=== PATIENT | male | born 1960 | race Caucasian/White ===

== ENCOUNTER 2017-08-24 02:00 | Inpatient (IN) | payer MEDICARE, MEDICAID ==
[~2017-08-24] VITALS: Ht 185.4 cm; Wt 108.9 kg
[2017-08-24 02:14] VITALS: Ht 185.4 cm; Wt 108.9 kg
[2017-08-24 02:43] LABS: BASOPHIL % 0.7 % (0-2); PLATELET COUNT 241 x10^3mcL (130-400); RED CELL DISTRIBUTION WIDTH 13.6 % (11.5-14.5)
[2017-08-24 03:07] LABS: CALCIUM 8.6 mg/dL (8.5-10.1); CARBON DIOXIDE 29.5 mmol/L (21-32); CHLORIDE SERUM 105 mmol/L (98-107); GFR1 > 60 mL/min; GLUCOSE SERUM 105 mg/dL (74-106); POTASSIUM SERUM 3.8 mmol/L (3.5-5.1); SODIUM SERUM 140 mmol/L (136-145)
[2017-08-24 03:12] LABS: ALBUMIN 3.6 g/dL (3.4-5.0); ALKALINE PHOSPHATASE 93 U/L (46-116); ALT/SGPT 13 U/L (16-63); AST/SGOT 17 U/L (15-37); BILIRUBIN TOTAL 0.33 mg/dL (0.20-1.00); TOTAL PROTEIN, SERUM 7.3 g/dL (6.4-8.2)
[2017-08-24 04:37] LABS: AMPHETAMINE QUAL UR NONE DETECTED (NEG <=1000)
[2017-08-24 05:24] LABS: microscopic required? NO
[2017-08-24 05:28] LABS: urine erythrocyte NEGATIVE (NEGATIVE)
[2017-08-24 05:51] LABS: FREE T4 0.86 ng/dL (0.76-1.46); FREE THYROXINE INDEX 2.4 ug/dL (1.4-4.5); T4(THYROXINE) 7.3 ug/dL (4.7-13.3)
[2017-08-24 06:08] LABS: CHOLESTEROL/HDL RATIO 3.4; MAGNESIUM 1.9 mg/dL (1.8-2.4); PHOSPHOROUS 4.3 mg/dL (2.5-4.9)
[2017-08-24 07:06] VITALS: BP 129/66
[2017-08-24 07:29] LABS: T3 TOTAL 1.1 ng/mL
[2017-08-24 08:20] VITALS: BP 116/72
[2017-08-24] MEDS ORDERED: NEURONTIN800 MG PO (09:20)
[2017-08-24] MEDS ORDERED: VIS50 PO (09:22)
[2017-08-24] MEDS ORDERED: TRAZODONE50 M1 (09:22)
[2017-08-24] MEDS ORDERED: COUMADIN3 MG PO (09:23)
[2017-08-24] MEDS ORDERED: TRAZODONE50 M1 PO (09:23)
[2017-08-24] MEDS ORDERED: LOSARTAN POTAS100 M1 PO (09:29)
[2017-08-24] MEDS ORDERED: LOP100 PO (09:29)
[2017-08-24] MEDS ORDERED: HYDROCHLOROTH12.5 M2 PO (09:31)
[2017-08-24] MEDS ORDERED: NOR10 PO (09:32)
[2017-08-24] MEDS ORDERED: LIPITOR40 MG PO (09:32)
[2017-08-24] MEDS ORDERED: PEPCID40 MG PO (09:35)
[2017-08-24 13:30] VITALS: BP 118/70
[2017-08-24 14:25] VITALS: BP 129/66
[2017-08-24 16:50] VITALS: BP 124/85
[2017-08-24 21:02] VITALS: BP 114/71
[2017-08-25 04:57] VITALS: BP 125/79
[2017-08-25 06:11] LABS: PLATELET COUNT 223 x10^3mcL (130-400); RED CELL DISTRIBUTION WIDTH 13.7 % (11.5-14.5)
[2017-08-25 06:14] LABS: CALCIUM 8.3 mg/dL (8.5-10.1); CARBON DIOXIDE 32.8 mmol/L (21-32); CHLORIDE SERUM 106 mmol/L (98-107); CREATININE SERUM 1.1 mg/dL (0.7-1.3); GFR1 > 60 mL/min; GLUCOSE SERUM 89 mg/dL (74-106); PHOSPHOROUS 4.1 mg/dL (2.5-4.9); POTASSIUM SERUM 4.8 mmol/L (3.5-5.1); SODIUM SERUM 144 mmol/L (136-145)
[2017-08-25 08:00] VITALS: BP 109/68
[2017-08-25 14:09] VITALS: BP 120/78
[2017-08-25 17:33] VITALS: BP 141/81
[2017-08-25 21:16] VITALS: BP 122/72
[2017-08-26 05:28] VITALS: BP 103/76
[2017-08-26 06:05] LABS: BASOPHIL % 0.7 % (0-2); PLATELET COUNT 237 x10^3mcL (130-400); RED CELL DISTRIBUTION WIDTH 13.7 % (11.5-14.5)
[2017-08-26 06:24] LABS: CALCIUM 8.7 mg/dL (8.5-10.1); CHLORIDE SERUM 103 mmol/L (98-107); CREATININE SERUM 1.1 mg/dL (0.7-1.3); GFR1 > 60 mL/min; GLUCOSE SERUM 95 mg/dL (74-106); PHOSPHOROUS 3.6 mg/dL (2.5-4.9); POTASSIUM SERUM 4.8 mmol/L (3.5-5.1); SODIUM SERUM 142 mmol/L (136-145)
[2017-08-26 08:53] VITALS: BP 133/66
[2017-08-26 09:50] VITALS: BP 127/87
[2017-08-26 13:05] VITALS: BP 127/77
[2017-08-26] MEDS ORDERED: LAM100 PO (13:49)
[2017-08-26] MEDS ORDERED: KEP500 PO (13:49)
[2017-08-26 20:22] VITALS: BP 124/79
[2017-08-27 06:00] LABS: BASOPHIL % 0.7 % (0-2); PLATELET COUNT 234 x10^3mcL (130-400); RED CELL DISTRIBUTION WIDTH 13.4 % (11.5-14.5)
[2017-08-27 06:22] LABS: CALCIUM 8.7 mg/dL (8.5-10.1); CARBON DIOXIDE 33.5 mmol/L (21-32); CHLORIDE SERUM 103 mmol/L (98-107); CREATININE SERUM 1.1 mg/dL (0.7-1.3); GFR1 > 60 mL/min; GLUCOSE SERUM 92 mg/dL (74-106); MAGNESIUM 1.9 mg/dL (1.8-2.4); PHOSPHOROUS 4.3 mg/dL (2.5-4.9); POTASSIUM SERUM 4.3 mmol/L (3.5-5.1); SODIUM SERUM 141 mmol/L (136-145)
[2017-08-27 09:00] VITALS: BP 115/71
[2017-08-27 12:22] VITALS: BP 115/71
[2017-08-27 13:55] VITALS: BP 115/77
[2017-08-27] MEDS ORDERED: COZ25 PO (14:19)
[2017-08-27 15:53] VITALS: BP 121/78
== END 2017-08-27 17:22 | DRG 101 ==
LOC: ED 02:00 → DU 05:10
PROVIDERS: Emergency Medicine; Family Medicine
PROC: 7W0 Osteopathic, Anatomical Regions, Treatment (ICD-10-PCS; principal; 2017-08-24)
PROC: 7W0 Osteopathic, Anatomical Regions, Treatment (ICD-10-PCS; 2017-08-24)
PROC: 7W01X1Z Osteopathic Treatment of Cervical Region using Fascial Release (ICD-10-PCS; 2017-08-24)
PROC: 7W03X1Z Osteopathic Treatment of Lumbar Region using Fascial Release (ICD-10-PCS; 2017-08-24)
DX: G40.909 Epilepsy, unspecified, not intractable, without status epilepticus (principal); E11.42 Type 2 diabetes mellitus with diabetic polyneuropathy; I48.91 Unspecified atrial fibrillation; K21.9 Gastro-esophageal reflux disease without esophagitis; F31.9 Bipolar disorder, unspecified; G89.29 Other chronic pain; M51.9 Unspecified thoracic, thoracolumbar and lumbosacral intervertebral disc disorder; M99.01 Segmental and somatic dysfunction of cervical region; M99.03 Segmental and somatic dysfunction of lumbar region; F41.1 Generalized anxiety disorder; E78.5 Hyperlipidemia, unspecified; I10 Essential (primary) hypertension; G47.00 Insomnia, unspecified; E66.9 Obesity, unspecified; Z91.81 History of falling; Z98.1 Arthrodesis status; Z94.7 Corneal transplant status; Z95.0 Presence of cardiac pacemaker; Z68.31 Body mass index [BMI] 31.0-31.9, adult; Z79.01 Long term (current) use of anticoagulants
CPT/HCPCS: 82962; 83880; 84439; 87046; 87046-59; 94150; 97110-GP; 97116-GP; 97530-GP; G0480; J2270; J2405; J7030; J7620; Q0092